=== PATIENT | female | born 1955 | race Caucasian/White ===

== ENCOUNTER → 2017-07-09 | Day surgery (SDC) | payer OTHER ==
[~2017-07-09] MED LIST: ASA81 MG PO; FENTANYL CITRATE/PF 100MCG/2 ML INJ ONE; LIDOCAINE HCL 2% LOCAL INJ 5 ML SDV VIAL INJ ONE; METOCLOPRAMIDE HCL 10 MG/2ML VIAL ONE; MIDAZOLAM HCL 2 MG/2 ML VIAL ONE; PROPOFOL IV EMULSION 10 MG/ML 50 ML VIAL ONE; ULTRAM50 MG PO; Z.0.CYCLOBENZAPRINE1 PO; Z.0.HYDROCODON-ACE1 PO; Z.0.ONE-A-DAY WOME1 PO; ZIAC; [UNRECOGNIZED DRUG - OTHER]; [UNRECOGNIZED DRUG - OTHER] PO
--- NOTE | 2017-07-09 11:51 | Operative Report ---
DATE OF PROCEDURE: July 09, 2017 REFERRING PHYSICIAN: Jose G Lamas MD PROCEDURES PERFORMED 1. Esophagogastroduodenoscopy with biopsies. 2. Colonoscopy with polypectomy and biopsies. INDICATIONS FOR EGD: Chronic cough, (?)reflux induced. INDICATIONS FOR COLONOSCOPY: Colorectal cancer screening. Personal history of colon polyps. History of bright red blood per rectum. MEDICATION: Patient was done under MAC. Please see anesthesiologist's note. PROCEDURE: With the patient in the left lateral decubitus position, the flexible fiberoptic Olympus gastroscope was introduced into the esophagus under direct visualization without any difficulty. There was some patchy erythema noted in the distal esophagus. Focal nodularity and friability were noted at the GE junction, and that was biopsied. The scope was then advanced with ease into the stomach. Mucosa overlying the antrum and the body revealed some patchy erythema and low-grade edema, and biopsies were obtained and sent to stain for H. pylori. The pylorus was of normal contour and shape. It was intubated with ease, and the scope was advanced all the way to the 2nd portion of the duodenum. The scope was then withdrawn slowly. There was a 1-cm submucosal lesion suspicious for a lipoma in the proximal 2nd portion proximal to the ampulla that was biopsied. The duodenal bulb appeared to be within normal limits. The scope was then drawn back into the stomach and retroflexed. Mucosa overlying the fundus and cardia appeared to be within normal limits. The scope was then straightened out. It was subsequently withdrawn. Patient tolerated the procedure well. IMPRESSION 1. Mild distal esophagitis. 2. Focal nodularity and friability at gastroesophageal junction, biopsied. 3. Gastritis, biopsied. Biopsies sent to stain for H. pylori. 4. Approximately 1-cm submucosal lesion, proximal 2nd portion proximal to the ampulla, (?)lipoma, biopsies obtained. PLAN: Follow up histology. Initiate Protonix 40 mg 1 p.o. q.a.m. a.c. The patient was then turned around. After adequate lubrication of the anal canal, a flexible fiberoptic Olympus colonoscope was inserted into the rectum with ease and advanced all the way to the cecum. It was then withdrawn slowly. Mucosa overlying the cecum and ascending colon appeared to be within normal limits. One polyp was hot biopsied from the distal transverse colon. The descending colon appeared to be within normal limits. Diverticular disease was noted to involve the sigmoid colon. There were some mild to moderate inflammatory changes, (?)diverticulosis-associated colitis, in the sigmoid colon. Biopsies were obtained. One polyp was snared from the sigmoid colon. The rectum appeared to be within normal limits. The scope was then retroflexed into the distal rectum, and small internal hemorrhoids were noted, none of which was actively bleeding. The scope was then straightened out. It was subsequently withdrawn. Patient tolerated the procedure well. IMPRESSION 1. Transverse colon polyp, hot biopsied. 2. Diverticulosis. 3. Segmental colitis, sigmoid colon. Biopsies obtained. 4. Sigmoid colon polyp, snared. 5. Internal hemorrhoids, none actively bleeding. PLAN: Follow up histology. Initiate high-fiber, low-fat diet. Initiate high-fiber supplement. Patient will need a followup colonoscopy in 3 years. Job#: [id number] cc:JOSE G LAMAS M.D.
== END | disposition home or self-care (01) ==
LOC: OR 07:43
PROVIDERS: ATTEND Internal Medicine Gastroenterology
DX: Z12.11 Encounter for screening for malignant neoplasm of colon (principal); K63.5 Polyp of colon; K29.50 Unspecified chronic gastritis without bleeding; K21.0 Gastro-esophageal reflux disease with esophagitis; K50.10 Crohn's disease of large intestine without complications; K31.89 Other diseases of stomach and duodenum; K59.00 Constipation, unspecified; K57.30 Diverticulosis of large intestine without perforation or abscess without bleeding; K64.8 Other hemorrhoids; R05 Cough; R03.0 Elevated blood-pressure reading, without diagnosis of hypertension; E78.5 Hyperlipidemia, unspecified; E66.01 Morbid (severe) obesity due to excess calories; F32.9 Major depressive disorder, single episode, unspecified; F17.210 Nicotine dependence, cigarettes, uncomplicated; Z01.810 Encounter for preprocedural cardiovascular examination; Z68.31 Body mass index [BMI] 31.0-31.9, adult
CPT/HCPCS: 43239; 45380; 45384; 45385; 93005; J2001; J2250; J2765